=== PATIENT | female | born 1955 | race African-American/Black ===

== ENCOUNTER 2019-03-11 19:24 | Emergency (ER) | payer OTHER ==
[~2019-03-11] VITALS: Ht 162.6 cm; Wt 96.6 kg
[2019-03-11 19:27] VITALS: Ht 162.6 cm; Wt 96.6 kg
[2019-03-11 19:59] LABS: BASOPHIL % 0.8 % (0-2); PLATELET COUNT 317 x10^3mcL (130-400)
[2019-03-11 20:11] LABS: CALCIUM 8.7 mg/dL (8.5-10.1); CARBON DIOXIDE 26.9 mmol/L (21-32); CREATININE SERUM 1.2 mg/dL (0.6-1.0)
[2019-03-11 20:16] LABS: ALBUMIN 3.7 g/dL (3.4-5.0); BILIRUBIN TOTAL 0.29 mg/dL (0.20-1.00); TOTAL PROTEIN, SERUM 6.9 g/dL (6.4-8.2)
[2019-03-11 20:17] LABS: CHOLESTEROL/HDL RATIO 3.6
[2019-03-11 20:23] LABS: FREE T4 0.88 ng/dL (0.76-1.46); FREE THYROXINE INDEX 2.7 ug/dL (1.4-4.5); T4(THYROXINE) 7.8 ug/dL (4.7-13.3)
[2019-03-11 20:36] LABS: T3 TOTAL 1.18 ng/mL
[2019-03-11 20:53] LABS: UA SPECIFIC GRAVITY <=1.005 (1.005-1.035)
[2019-03-11 20:54] LABS: microscopic required? YES
[2019-03-11 20:55] LABS: urine erythrocyte NEGATIVE (NEGATIVE)
[2019-03-12 00:07] VITALS: BP 114/67
== END 2019-03-12 00:07 | disposition left against medical advice (07) ==
LOC: ED 19:24
PROVIDERS: Specialist
DX: I48.91 Unspecified atrial fibrillation (principal); I10 Essential (primary) hypertension; Z88.8 Allergy status to other drugs, medicaments and biological substances
CPT/HCPCS: 83880; 84439; J3490; J7030; Q0092